=== PATIENT | female | born 1935 | race Caucasian/White ===

== ENCOUNTER 2016-12-11 10:34 | Day surgery (SDC) | payer MEDICARE ==
[~2016-12-11] VITALS: Ht 152.4 cm; Wt 63.3 kg
[~2016-12-11 10:34] MED LIST: AMAR4TAB PO; BENI40TA30 PO; CALC600T34 PO; IMDU30TA PO; METF-324 PO; METO25 PO; ONGLYZA PO; SYNT25TA PO
[2016-12-11] MEDS ORDERED: IOHEXOL 350 MG/ML 50 ML BTL (for Cath Lab) OTHER ONE (10:35)
[2016-12-11] MEDS ORDERED: IOHEXOL 350 MG/ML 100 ML BTL (for Cath Lab) OTHER ONE (10:35)
[2016-12-11] MEDS ORDERED: NS 1000P @30 MLS/HR (KVO) IV SCH (11:00)
[2016-12-11 11:29] VITALS: BP 152/80; PULSE 67; RESP 16; TEMP 97.5; O2SAT 99
[2016-12-11] MEDS ORDERED: LOSA100T PO (11:43)
[2016-12-11] MEDS ORDERED: VITA100018 PO (11:43)
[2016-12-11] MEDS ORDERED: FAMO40TA PO (11:43)
[2016-12-11] MEDS ORDERED: GABA300C5 PO (11:43)
[2016-12-11] MEDS ORDERED: GLIM4TAB PO (11:43)
[2016-12-11] MEDS ORDERED: LEVO88TA2 PO (11:43)
[2016-12-11] MEDS ORDERED: TYLE325T PO (11:43)
[2016-12-11] MEDS ORDERED: LOVA10TA PO (11:43)
[2016-12-11] MEDS ORDERED: CHOL1CAP24 PO (11:43)
[2016-12-11] MEDS ORDERED: CALC1TAB87 PO (11:43)
[2016-12-11] MEDS ORDERED: ASPI81CH37 CHEW (11:43)
[2016-12-11] MEDS ORDERED: ACAR50TA PO (11:43)
[2016-12-11] MEDS ORDERED: METF1000 PO (11:43)
[2016-12-11] MEDS ORDERED: VITA100064 PO (11:43)
[2016-12-11] MEDS ORDERED: ASPIRIN 325 MG TAB PO SCH (11:45)
[2016-12-11] MEDS ORDERED: SODIUM CHLOR 0.9% 1000 ML INJ 1,000 ML IV SCH ×2 (12:00→14:07)
[2016-12-11 12:20] LABS: AUTOMATED NEUTROPHIL # 2.3 TH/MM3 (1.8-7.7); BASOPHIL % 0.7 % (0.0-2.0); EOSINOPHIL # 0.1 TH/MM3 (0-0.4); EOSINOPHIL % 2.6 % (0.0-4.0); HEMATOCRIT 39.2 % (35.0-46.0); HEMO FLAGS DIFF FINAL; LYMPH % 28.5 % (9.0-44.0); LYMPHOCYTE # 1.1 TH/MM3 (1.0-4.8); MEAN CELL VOLUME 77.2 FL (80.0-100.0); MEAN CORPUSCULAR HEMOGLOBIN 25.3 PG (27.0-34.0); MEAN CORPUSCULAR HGB CONC 32.7 % (32.0-36.0); MONO % 9.8 % (0.0-8.0); NEUT % 58.4 % (16.0-70.0); PLATELET COUNT 280 TH/MM3 (150-450); RED BLOOD COUNT 5.08 MIL/MM3 (4.00-5.30); RED CELL DISTRIBUTION WIDTH 14.3 % (11.6-17.2); WHITE BLOOD COUNT 3.9 TH/MM3 (4.0-11.0)
[2016-12-11 12:22] LABS: APTT (PATIENT) 29.3 SEC (24.3-30.1); INTERNATIONAL NORMALIZED RATIO 0.9 RATIO; PROTHROMBIN TIME - PATIENT 10.4 SEC (9.8-11.6)
[2016-12-11 12:25] LABS: POTASSIUM 3.6 MEQ/L (3.5-5.1)
[2016-12-11] MEDS ORDERED: SODIUM CHLORID 0.9% 500 ML INJ 500 ML ONE (12:29)
[2016-12-11] MEDS ORDERED: HEPARIN-NS/PF INJ 1,000 ML ONE (12:29)
[2016-12-11] MEDS ORDERED: MIDAZOLAM HCL 2 MG/2 ML VIAL ONE (12:37)
--- NOTE | 2016-12-11 13:42 | CATHPROC ---
[employer]Former[employer] HIS Report Study Information Study Number Admission Scheduled Start Study Start [id number] Dec 11 2016 10:34AM 12/11/2016 Dec 11 2016 12:05PM [place] [facility] Cardiac Catheterization Admit Source Facility Department Other [facility] - Business [employer] Marketing Teacher Physician and Clinical Staff Initial MD Mckeon, Jesus Multiple Coil Winder Mickey RN, Ramesh Recorder Desmond Briscoe,HISTOLOGY TEACHER(BS) Scrub Leslie Morocho,RT(R) Procedures Performed Procedure Location (Site) Vessel Name Angiogram LV Aortic Angiogram LV LV Ventricle Coronary Angiograms LCA Left Coronary Coronary Angiograms RCA Right Coronary L Heart Cath Equipment Time Tagman Description Size Mfg Part Number Used/Scraped TRANSDUCER, TRUWAVE [id number] 12:08 [email or web address] * Used W/STOCKCOCK *[id number]- INTRODUCER SET, 12:58 [employer] FR 5 SC-NT-U-SST Used MICROPUNCTURE, STIFFENED *[id number] [phone] *[id number] [phone] *[id number] [phone] *[id number] [phone] *[id number] 538-453S *[id number] 12:08 [employer] PACK, CCL CUSTOM * Used *[id number] 12:08 [employer] PACER PEN, SKIN DUAL W/ RULER * Used *[id number] 12:08 [employer] WIRE, 3MMJ .035 180CM 180CM Used *[id number] PROBE COVER, STERILE [id number] 12:08 [employer] * Used ULTRASOUND W/ GEL *[id number] 12:08 [employer]IFOLD, 4 PORT * Used *[id number] 12:08 [employer] OMNIPAQUE, 350 MG, 150ML 150ML [id number] Used [id number] 12:08 [employer] BLANKET,WARM AIR CCL * Used *[id number] 12:08 [employer] MEDICAL SHEATH, FR4 TERUMO (10CM) FR 4 Used *[id number] History: Current Medications Medication Dosage/Unit Route Frequency Last Date/Time Taken ASA Statins (any) History: Allergies Allergy Reaction No Known Allergies History: Risk Factors Family History of Hypertension Dyslipidemia Previous MD Previous Heart Failure Premature CAD Yes Yes No No No Prior Valve Prior PCI Prior CABG Surgery No No No Cerebrovascular Peripheral Artery Chronic Lung On Dialysis Diabetes Diabetes Therapy Disease Disease Disease No No No No Yes Oral History: Symptoms/Diagnosis Selection Items Angina-unstable History: Stress Tests Stress or Imaging Studies Performed No History: Other Current Smoker No Labs Hgb (g/dl) Hct (%) WBC (l/cumm) Platelets (thousands) 11.60-17.00 35.00-51.00 4.00-11.00 150.00-450.00 12.8 39.2 3.9 280 Glucose (mg/dl) BUN (mg/dl) Creatinine (mg/dl) BUN:Creatinine (1:x) 74.00-106.00 7.00-18.00 0.50-1.30 10.00-20.00 161 16 0.6 26.7 Na (meq/l) K (meq/l) 136.00-145.00 3.50-5.10 138 3.6 INR (PTT:PT) 0.90-1.10 0.9 CPK-MB (ng/ML) 0.50-3.60 Not Drawn Medication Medication Total Dose (Bolus/Oral) Medication Total Dosage/Unit 1% XYLOCAINE 20 mL FENTANYL 25 mcg VERSED 1 mg Medications (Bolus/Oral) Medication Time Given Dosage/Unit Administered By Reason 12/11/2016 12:54:00 FENTANYL 25 mcg Ramesh Arevalo RN PM 25 mcg FENTANYL given in lab by Ramesh Arevalo RN in Left Antecubital via Peripheral IV. Ordered by Jesus De Luna. 12/11/2016 12:55:00 VERSED 1 mg Ramesh Arevalo RN PM 1 mg VERSED given in lab by Ramesh Arevalo RN in Left Antecubital via Peripheral IV. Ordered by Jesus Mckeon. 12/11/2016 12:55:50 1% XYLOCAINE 20 mL Jesus Mckeon PM 20 mL 1% XYLOCAINE given in lab by Jesus Mckeon in Right Groin via Subcutaneous. Ordered by Jesus Paulson. Medication (Drip) Medication Time Given Dosage/Unit Concentration/Unit Diluent (ml) Solution 12/11/2016 12:21:35 IV Solutions 0 mL (IV) 500 NaCl .9 PM Patient arrived on IV Solutions in Left Antecubital via Peripheral IV. Pump/Drip Flow = 20 ml/hr usin g NaCl .9. Initial Case Assessment Cardiovascular HR Rhythm NIBP Chest Pain 81 SR W AV BLOCK 153/75 0 Edema Present Skin color Skin None Normal Warm Dry Circulatory - Right Pulses Dorsalis Pedis Femoral 1 2 Scale (0,1,2,3,4,d) Circulatory - Left Pulses Dorsalis Pedis Femoral 1 2 Scale (0,1,2,3,4,d) Circulatory - Lower Extremities Color Lower Right Color Lower Left Normal Normal Neurological State Oriented to time-place- Alert Moves all extremities person Respiration - General Respiration Rate SpO2 (%) (B/min) 20 98 Final Case Assessment Cardiovascular HR Rhythm NIBP Chest Pain 81 SR W AV BLOCK 143/73 0 Edema Present Skin color Skin None Normal Warm Dry Circulatory - Right Pulses Dorsalis Pedis Femoral 1 2 Scale (0,1,2,3,4,d) Circulatory - Left Pulses Dorsalis Pedis Femoral 1 2 Scale (0,1,2,3,4,d) Circulatory - Lower Extremities Color Lower Right Color Lower Left Normal Normal Neurological State Oriented to time-place- Alert Moves all extremities person Respiration - General Respiration Rate SpO2 (%) (B/min) 20 98 Chronological Log Time Study Chronological Log 12:21:18 Patient arrived via Bed. 12:21:19 Patient Name, D.O.B, / Armband Verified By R.N. 12:21:20 Consent signed by the physician and the patient and verified by the Business [employer] Marketing Teacher staff. 12:21:21 Pre-op and post- op instructions given; patient acknowledges understanding of instructions. 12:21:21 Verbal Stimulation=2 Physical Stimulation=2 Airway=2 Respiration=2 TOTAL=8. (0=absent, 1=li mited, 2=present) 12:21:29 Patient has been NPO for More than 6Hrs. 12:21:30 Skin Breakdown- 12:21:31 Patient Warmer Placed on the Table. 12:21:35 A # 20 IV was noted in the Antecubital (left). Grade = 0 12:21:35 Patient arrived on IV Solutions in Left Antecubital via Peripheral IV. Pump/Drip Flow = 20 ml/hr using NaCl .9. 12:21:36 History and physical on the chart or being dictated. Assessment: Initial Case, HR=81 BPM, Rhythm=SR W AV BLOCK, HAGT=258/75 mmhg, Chest Pain=0, All a=None, Color=Normal, Skin = Warm, Dry Right Pulses: Alfredo Ped=1, Femoral=2 Left Pulses: Alfredo Ped=1, Femoral=2 12:21:37 Lower Right Extremities: Color=Normal Lower Left Extremities: Color=Normal Neurological: State=Alert, Ox3, MARTINEZ Respiration: Resp=20 B/min, SpO2=98 % Vitals capture started with the following parameters, Patient=Adult, Interval=5 min, Initial Pr asbfss=260 mmHg, 12:25:22 Deflation Rate=5 mmHg, Cuff placed on Left Arm 12:26:30 HR=74 bpm, TVBA=291/89 mmhg, SpO2=80.0 %, Resp=17 B/min, Pain=0, Emmanuel=10, Cota=2 12:27:50 Bilateral groins prepped with 2% chlorhexidine, and draped after a 3 minute waiting time. 12:30:00 MD paged 12:31:04 HR=87 bpm, PPGY=106/79 mmhg, SpO2=96.0 %, Resp=8 B/min, Pain=0, Emmanuel=10, Cota=2 12:36:04 HR=76 bpm, ZTSQ=919/86 mmhg, SpO2=96.0 %, Resp=11 B/min, Pain=0, Emmanuel=10, Cota=2 12:40:38 Pressure channel 1 zeroed. 12:41:35 HR=74 bpm, HVVS=220/75 mmhg, SpO2=97.0 %, Resp=13 B/min, Pain=0, Emmanuel=10, Cota=2 12:46:06 HR=75 bpm, WBBX=779/85 mmhg, SpO2=97.0 %, Resp=12 B/min, Pain=0, Emmanuel=10, Cota=2 12:49:15 MD arrived. 12:51:05 HR=85 bpm, VSJN=578/86 mmhg, SpO2=99.0 %, Resp=8 B/min, Pain=0, Emmanuel=10, Cota=2 12:53:16 Reference ECG taken 12:54:00 25 mcg FENTANYL given in lab by Ramesh Arevalo RN in Left Antecubital via Peripheral IV. Orde red by Jesus Mckeon. Time Out. Correct patient, correct procedure, correct physician, power not loaded with contrast with surgical team 12:54:13 present. Time Out Concurred by MD and individual staff in procedure. 12:54:14 Case Start 12:55:00 1 mg VERSED given in lab by Ramesh Arevalo RN in Left Antecubital via Peripheral IV. Ordered by Jesus Mckeon. 20 mL 1% XYLOCAINE given in lab by Jesus Mckeon in Right Groin via Subcutaneous. Ordered by Linda 12:55:50 Jesus. 12:56:06 HR=79 bpm, JRVY=102/71 mmhg, SpO2=95.0 %, Resp=18 B/min, Pain=0, Emmanuel=10, Cota=2 A INTRODUCER SET, MICROPUNCTURE, STIFFENED FR 5 was advanced into the Fem Art (right) using the 12:57:47 Percutaneous technique. A SHEATH, FR4 TERUMO (10CM) FR 4 was exchanged in the Fem Art (right). This was necessary in or haley to 12:58:37 accomodate a larger catheter. A JL 4.0 INFINITI CATHETER FR 4 was advanced over a wire. OMNIPAQUE, 350 MG, 150ML 150ML was us ed for 12:58:44 injections. Recorded Pressure: Ao, HR=76, Condition=Condition 1 12:59:46 (Aorta) Ao 150/68/101 After removing the current catheter a JL 5.0 INFINITI CATHETER FR 4 was advanced over a WIRE, 3 MMJ .035 180CM 13:00:15 180CM. 13:01:09 HR=85 bpm, YCUU=257/72 mmhg, SpO2=97.0 %, Resp=17 B/min, Pain=0, Emmanuel=10, Cota=2 13:02:46 The LCA was injected and visualized at various angles. OMNIPAQUE, 350 MG, 150ML 150ML used . 13:05:32 Catheter was removed 13:06:06 HR=78 bpm, GZSX=630/70 mmhg, SpO2=95.0 %, Resp=18 B/min, Pain=0, Emmanuel=10, Cota=2 A 3DRC INFINITI CATHETER FR 4 was advanced over a wire. OMNIPAQUE, 350 MG, 150ML 150ML was used for 13:06:19 injections. 13:08:27 The RCA was injected and visualized at various angles. OMNIPAQUE, 350 MG, 150ML 150ML used . 13:09:57 Catheter was removed 13:11:01 HR=81 bpm, AQCU=623/67 mmhg, SpO2=96.0 %, Resp=15 B/min, Pain=0, Emmanuel=10, Cota=2 A PIGTAIL ANG. INFINITI CATHETER FR 4 was advanced over a wire. OMNIPAQUE, 350 MG, 150ML 150ML was used 13:11:55 for injections. Recorded Pressure: LV, HR=80, Condition=Condition 1 13:12:24 (Left Ventricle) LV 147/7/14 13:12:56 The LV was injected at 4.6 cc/sec for a total of 32. OMNIPAQUE, 350 MG, 150ML 150ML used. Recorded Pressure: LV, Ao, HR=73, Condition=Condition 1 13:16:02 (Left Ventricle) LV 159/9/16, (Aorta) Ao 146/62/95 13:16:06 HR=74 bpm, KKAW=830/66 mmhg, SpO2=96.0 %, Resp=19 B/min, Pain=0, Emmanuel=10, Cota=2 13:16:40 The Aortic was injected at 10 cc/sec for a total of 20. OMNIPAQUE, 350 MG, 150ML 150ML use d. 13:18:04 Catheter was removed A JL 5.0 INFINITI CATHETER FR 4 was advanced over a wire. OMNIPAQUE, 350 MG, 150ML 150ML was u sed for 13:19:07 injections. 13:20:36 The LCA was injected and visualized at various angles. OMNIPAQUE, 350 MG, 150ML 150ML use d. 13:21:05 HR=81 bpm, THJP=881/73 mmhg, SpO2=95.0 %, Resp=19 B/min, Pain=0, Emmanuel=10, Cota=2 13:21:12 Catheter was removed 13:21:16 Case End Assessment: Final Case, HR=81 BPM, Rhythm=SR W AV BLOCK, SGUU=143/73 mmhg, Chest Pain=0, Edema =None, Color=Normal, Skin = Warm, Dry Right Pulses: Alfredo Ped=1, Femoral=2 Left Pulses: Alfredo Ped=1, Femoral=2 13:22:02 Lower Right Extremities: Color=Normal Lower Left Extremities: Color=Normal Neurological: State=Alert, Ox3, MARTINEZ Respiration: Resp=20 B/min, SpO2=98 % 13:27:23 Vitals capture stopped. 13:27:39 Sterile dressing applied to site 13:27:40 No case complications noted. 13:27:45 Cine recording checked. 13:28:26 Bedside Report will be given. 13:28:29 Contrast Scanned 13:28:35 A Left Heart Cath was performed. 13:28:55 [facility] - Contrast Media Used In Study Contrast Total Opened (mL) Total Used (mL) Total Wasted (mL) Omnipaque 130 130 0 End Study - Maximum Contrast Load Max Contrast Load (mL) 527.7 End Study - Radiation Exposure Fluoro Time (minutes) 4.4 End Study - Patient Disposition Complications Transferred To Telemetry Bed
[2016-12-11] MEDS ORDERED: MISC INFORMATION XX ONE (14:15)
[2016-12-11] MEDS ORDERED: ACETAMINOPHEN 325 MG TAB PO SCH (16:00)
--- NOTE | 2016-12-11 22:15 | EKG ---
Date Performed: 12/11/2016 Time Performed: 11:16:40 PTAGE: 81 years EKG: Sinus rhythm with borderline 1st degree A-V block. Left axis deviation IV conduction defect/LBBB Abnormal ECG PREVIOUS TRACING : 09/27/2009 14.12 Compared to the previous tracing IVCD present DOCTOR: Raphael Masters Interpretating Date/Time 12/11/2016 22:13:49
--- NOTE | 2016-12-12 09:18 | MA ---
cc: JESUS MCKEON M.D. DATE: 12/11/16 PROCEDURE Cardiac catheterization. INDICATION FOR CATHETERIZATION 1. Cardiomyopathy. 2. Known coronary artery disease. 3. Chest pain. 4. . CONSENT Full informed consent was obtained prior to the procedure. The risk of , bleeding, myocardial infarction, perforation, aspiration, foreseen and unforeseen complications were reviewed. The patient fully appeared to understand the risks. PROCEDURAL STATEMENT The patient draped and prepped in the usual manner. The right femoral artery was entered using a micropuncture technique via the 4 Irish sheath. Left and right coronary catheters used to intubate the . A pigtail catheter left ventricle. Multiple angiographic views were carried out. At the end of the catheterization procedure all catheters and sheaths were removed. Manual pressure was applied, good hemostasis was acheived. The patient returned to her room in stable condition. FINDINGS 1. Hemodynamic: The aortic pressure 143/62 with a mean of 95. The left ventricular pressure 159 with a left ventricular end diastolic pressure of 16. There was no evidence of significant gradient on pullback across the LV outflow tract and aortic valve. 2. Left ventriculogram: The ejection fraction was reduced estimated at about 35, 36%. There is no evidence of significant mitral regurgitation. 3. Aortogram: There is no evidence of significant aortic regurgitation. There was mild dilation at the aortic root. CORONARIES The left main was large with no significant stenosis. The LAD had a proximal ostial stenosis of about 40%. The remainder of the LAD was diffusely diseased and calcified. There was a 50% long irregular stenosis up to the first ____1:48 involving the first diagonal branch to the small vessel. The ostium of the diagonal the first diagonal branch had a 90% stenosis but was small approximately 1 mm in diameter. The second diagonal branch was medium, free of significant disease. Following the second diagonal branch with a 40% stenosis. The circumflex vessel was a large vessel. It had a large first obtuse marginal branch. Both first, second obtuse marginal branches were tortuous but free of significant disease. The right coronary artery was a large vessel with diffuse 50% disease proximal in the mid section, posterior descending artery was large , posterior lateral branch . CONCLUSION 1. Reduced ejection fraction at 36% with evidence of a global cardiomyopathy. 2. Aortogram showed no evidence of significant aortic regurgitation. 3. The patient is given sedation. 4. Mild to moderate coronary artery disease as described above with no significant stenosis. 5. Coronary sinus shows a large lateral vein. Jesus Mckeon MD, FRCP,FACC HAJ/EO /1:36 PM /9:01 AM
== END 2016-12-11 18:07 | disposition home or self-care (01) ==
LOC: HDIC 10:34 → HDOC 10:34
PROVIDERS: ATTEND Internal Medicine Cardiovascular Disease
DX: I42.9 Cardiomyopathy, unspecified (principal); I25.10 Atherosclerotic heart disease of native coronary artery without angina pectoris; R07.89 Other chest pain; Z01.818 Encounter for other preprocedural examination; Z79.01 Long term (current) use of anticoagulants; Z79.84 Long term (current) use of oral hypoglycemic drugs; E11.9 Type 2 diabetes mellitus without complications; I10 Essential (primary) hypertension; E78.5 Hyperlipidemia, unspecified; I44.7 Left bundle-branch block, unspecified; R91.1 Solitary pulmonary nodule; I65.29 Occlusion and stenosis of unspecified carotid artery; R91.8 Other nonspecific abnormal finding of lung field; I51.7 Cardiomegaly; E07.9 Disorder of thyroid, unspecified
CPT/HCPCS: 80048; 85025; 85610; 85730; 93005; 93458; 93567; C1769; C1893; J1644; J2250; J3010; J7040; Q9967